=== PATIENT | male | born 1965 | race Caucasian/White ===

== ENCOUNTER 2017-05-02 23:05 | Emergency (ER) | payer OTHER, BC ==
[~2017-05-02] VITALS: Ht 180.3 cm; Wt 90.7 kg
[~2017-05-02 23:05] MED LIST: FLEXERIL PO; HYDROCHLOROTH12.5 M1 PO; HYDROCODONE-AP1 EAC6 PO; IBUPROFEN 600600 M1 PO; LISINOPRIL10 MG PO; MORPHINE SULFAT15 M3 PO; NORCO 10-325 T1 EACH PO; PERCOCET 10-321 EACH PO; PREDNISONE 20 M20 MG PO; TRAMADOL 50 MG50 MG PO; VALIUM5 MG PO; ZANAFLEX4 MG PO
[2017-05-02] MEDS ORDERED: ROBAXIN500 MG PO (23:44)
[2017-05-02] MEDS ORDERED: LOPRESSOR25 PO (23:44)
[2017-05-03] MEDS ORDERED: NAPROSYN500 MG PO (00:14)
[2017-05-03] MEDS ORDERED: PERCOCET PO (00:14)
[2017-05-03] MEDS ORDERED: NORFLEX100 MG PO (00:14)
[2017-05-03 01:04] VITALS: BP 128/96
== END 2017-05-03 01:05 | disposition home or self-care (01) ==
LOC: ER 23:05
DX: G89.4 Chronic pain syndrome (principal); M43.6 Torticollis; M50.10 Cervical disc disorder with radiculopathy, unspecified cervical region; Z87.891 Personal history of nicotine dependence

== ENCOUNTER → 2019-03-18 | Outpatient (CLI) | payer OTHER ==
[~2019-03-18] VITALS: Ht 180.3 cm; Wt 90.7 kg
[~2019-03-18] MED LIST changes: +DIPHENHIST50 MG PO; +LIDODERM1 EACH TOP; +LOPRESSOR25 PO; +NABUMETONE 500500 M1 PO; +NAPROSYN500 MG PO; +NORFLEX100 MG PO; +PERCOCET PO; +ROBAXIN500 MG PO
[2019-03-18 10:28] VITALS: BP 123/87
--- NOTE | 2019-03-18 10:56 | NUR ---
Pain Clinic Assessment: 1. History of Osteoarthritis: Not Applicable History of Rheumatoid Arthritis: Not Applicable 2. Height: 5 ft. 11 in. 180.3 cm. Weight: 200.0 lb. oz. 90.720 kg. Patient's BMI: 27.9 3. Vital Signs: BP: 123/87 Pulse: 88 Resp: 14 Temp: 02 Sat: 98 ECG Mon: 4. Pain Intensity: 6-9 5. Fall Risk: Dizziness: N Needs help standing or walking: N Fallen in the last 3 months: N Fall risk comments: 6. Patient on Blood Thinner: None 7. History of Hypertension: Y 8. Opioid Therapy greater than 6 weeks: Y Opiate Contract Signed: 9. Risk Assessment Tool Provided: 6-MODERATE RISK 10. Functional Assessment Tool: 43/ 11. Recreational Drug Use: Never Drug Type: Tobacco Use: Former Smoker Tobacco Type: Chewing Tobacco Amount or Packs/day: How Many Years: Alcohol Use: No Frequency: Quant:
--- NOTE | 2019-03-19 13:52 | HPC ---
[facility] [place] [address] PAIN MANAGEMENT CONSULTATION Name: RAJESH CALDERON Room #: REG [facility] MJudit.#: [id number] Admission: 03/18/19 Attend Phys: Anthony Walker DO Discharge: Date of : 69 Report #: [id number] THIS REPORT FOR: cc: CARON GLEZ Ray W. DO Johnson, James E. DO ~ THIS REPORT FOR: //name// CC: Dr. Eris PEREZ DATE OF SERVICE: 03/18/2019 REFERRING PHYSICIAN: Dr. Schulte, physician with [facility]. PRIMARY CARE PHYSICIAN: Dr. Monroe Perez, [facility] CHIEF COMPLAINT: Neck pain, left upper extremity pain. HISTORY OF PRESENT ILLNESS: As you know, the patient is a 53-year-old male who reports 4 months history of neck pain, left upper extremity pain. He indicates the pain as sharp and gnawing in sensation. He describes the pain as exacerbated with lying down and certain positions in his recliner. Pain is alleviated with TENS units medications. He is placing his current pain score 6-9/10. He was referred to multiple pain services including system for evaluation as the [facility] system does not have the capability of seeing the patient in a timely manner. He comes to us today with imaging study, requesting a cervical epidural injection under fluoroscopic guidance to determine if his symptoms will improve. It appears that there are some minor changes in the cervical spine and previous surgery at the C4-C5 level, but only mild arthritic changes, otherwise. He has been referred to our clinic to trial a cervical epidural injection. ALLERGIES: No reported drug allergies. CURRENT MEDICATIONS: Tizanidine 4 mg 3 times a day, tramadol 50 mg q. 8 hours p.r.n. for pain, Benadryl 50 mg p.o. at bedtime. SOCIAL HISTORY: The patient denies tobacco, alcohol, IV or illicit drug use. He is working, but is considering litigation against his employer as he reports injury began at his current place of employment. He is unaccompanied today. IMAGING: MRI of the cervical spine shows degenerative and postoperative changes [address] [address] PAIN MANAGEMENT CONSULTATION Name: RAJESH CALDERON [facility] [id number] Admission: 03/18/19 Attend Phys: Anthony Walker DO Discharge: Date of : 69 Report #: [id number] noted at the C4-C5 level. There is no central canal or neural foraminal stenosis at any level in the cervical area, mild facet arthropathy noted at C5-C6 and C6-C7. PAST MEDICAL HISTORY: Hypertension and carpal tunnel syndrome. PAST SURGICAL HISTORY: 1. Right wrist surgery. 2. Carpal tunnel release. 3. Left elbow joint replacement. 4. Fusion of the C4-C5 level. PHYSICAL EXAMINATION: VITAL SIGNS: Blood pressure 123/87, pulse 88, respiratory rate 14 and unlabored. The patient is 98% on room air. Height 5 feet, 11 inches tall, weight 200 pounds, BMI calculated 27.9. GENERAL: Well-developed, well-nourished, well-hydrated 53-year-old male, reporting pain at somewhere between 6-9/10. HEENT: Normocephalic, atraumatic. Pupils equal, round, reactive to light. Extraocular muscles are intact. Sclerae nonicteric without injection. NEUROLOGIC: Cranial nerves 2-12 grossly intact. Speech fluent. The patient deemed a good historian. LUNGS: Clear. No wheeze, rhonchi, no rales. CARDIOVASCULAR: Regular. No appreciable gallop, no rub. ABDOMEN: Soft, nontender, nondistended, normal active bowel sounds. EXTREMITIES: Show no clubbing, no cyanosis, no edema. MUSCULOSKELETAL: Upper extremity strength appears symmetrical 5/5, intact to light touch from C5 through T1 dermatomes. Spurling's test is negative. Cervical provocation testing is met with mild increase in neck pain. No specific radiation of symptoms. There is some palpatory tenderness over the paraspinal musculature, but no spinous process tenderness. Muscle bulk and tone equal and symmetrical in upper extremities. Deep tendon reflexes 2+/4 at biceps, brachialis and triceps. ASSESSMENT: 1. Cervicalgia. 2. Cervical spondylosis without radiculopathy. 3. Chronic intractable pain. PLAN: 1. The patient has been referred to our clinic to trial cervical epidural injection under fluoroscopic guidance to address minor arthritic changes in the cervical region noted at C5-C6 and to a lesser degree C4-5. The patient has no significant central canal neural foraminal stenosis responsible for any cervical radicular pain. The patient and I discussed the requested injection today and advised him of the risks and the benefits. Following was discussed with the [facility] [address] [place] [address] PAIN MANAGEMENT CONSULTATION Name: RAJESH CALDERON Room #: REG CLNeil Rey#: [id number] Admission: 03/18/19 Attend Phys: Anthony Walker DO Discharge: Date of : 69 Report #: [id number] patient today. The patient was advised risks of this injection include but are not necessarily limited to bleeding, bruising, infection, worsening pain, no relief of pain, also risk of temporary or permanent muscle weakness, temporary or permanent nerve damage, possible paralysis, post-dural puncture headache and . The patient states understood and wished to proceed. 2. The patient was provided a prescription of nabumetone 500 mg dose. This will be added to his current medication management for pain control. This anti-inflammatory is a potent medication to assist in his mild facet changes in the cervical region. He will watch for side effects of dyspepsia, worsening of blood pressure, lower extremity edema with its use. He will take each dose with food. Prescription was sent via e-scribe to local pharmacy. 3. We will see the patient back in followup visit on an as needed basis for the next in the series of cervical epidural injections if requested. The patient will be following up with his PCP in regard to medication changes and possible referral for physical therapy. 4. We wish to thank the referring physician for the opportunity to see this patient in consultation. We will keep you apprised of response to treatment as we address his mild facet arthropathy pain and chronic neck symptoms. Again, we wish to thank you for the opportunity to see this patient in consultation. <ELECTRONICALLY SIGNED> By: Anthony Walker DO 03/19/19 1352 1252 [id number] Anthony Walker DO /nt
== END | disposition home or self-care (01) ==
LOC: PAIN 06:37
DX: M54.2 Cervicalgia (principal); M47.812 Spondylosis without myelopathy or radiculopathy, cervical region; G89.29 Other chronic pain; I10 Essential (primary) hypertension; Z98.890 Other specified postprocedural states; Z96.622 Presence of left artificial elbow joint; Z79.899 Other long term (current) drug therapy

== ENCOUNTER → 2019-08-26 | Outpatient (CLI) | payer OTHER ==
[~2019-08-26] VITALS: Ht 180.3 cm; Wt 87.5 kg
[2019-08-26 09:38] VITALS: BP 120/95
--- NOTE | 2019-08-26 09:57 | NUR ---
Pain Clinic Assessment: 1. History of Osteoarthritis: Not Applicable History of Rheumatoid Arthritis: Not Applicable 2. Height: 5 ft. 11 in. 180.3 cm. Weight: 193.0 lb. oz. 87.544 kg. Patient's BMI: 26.9 3. Vital Signs: BP: 120/95 Pulse: 87 Resp: 14 Temp: 02 Sat: 98 ECG Mon: 4. Pain Intensity: 7 5. Fall Risk: Dizziness: N Needs help standing or walking: N Fallen in the last 3 months: N Fall risk comments: 6. Patient on Blood Thinner: None 7. History of Hypertension: Y 8. Opioid Therapy greater than 6 weeks: Y Opiate Contract Signed: 9. Risk Assessment Tool Provided: 6-MODERATE RISK 10. Functional Assessment Tool: 43 11. Recreational Drug Use: Never Drug Type: Tobacco Use: Former Smoker Tobacco Type: Amount or Packs/day: How Many Years: Alcohol Use: No Frequency: Quant:
--- NOTE | 2019-08-26 14:08 | HPC ---
[facility] [address] [place] [address] PAIN MANAGEMENT CONSULTATION Name: KVNGRAJESH ALEJANDRA [facility] #: [facility] [id number] Admission: 08/26/19 Attend Phys: Anthony Walker DO Discharge: Date of : 69 Report #: [id number] THIS REPORT FOR: cc: CARON GLEZ Ray W. DO Johnson, James E. DO ~ DATE OF SERVICE: 08/26/2019 CHIEF COMPLAINT: Neck pain, left upper extremity pain and paresthesias. HISTORY OF PRESENT ILLNESS: As you know, the patient is a very pleasant 53-year-old male returning in followup visit with recurrent cervical radicular symptoms. He is now experiencing pain level of 7/10. He returns today in followup visit stating pain is sharp, gnawing deep aching and throbbing in sensation, exacerbated with lying down, certain positions in his recliner, looking up at work, raising his head and moving his left arm, improves with TENS units, medications and previous cervical epidural injections. The last epidural injection provided in 03/2019 gave improvement in symptoms of greater than 70%, lasting almost until 08/13/2019. He has had a recurrence of symptoms without inciting injury or trauma. He returns today in followup visit requesting the authorization process to begin to undergo next in the series of cervical epidural injections. ALLERGIES: No known drug allergies. CURRENT MEDICATIONS: Lidocaine patch, tramadol, diphenhydramine, nabumetone. SOCIAL HISTORY: The patient denies tobacco, alcohol, IV or illicit drug use. He is working. At present, he is accompanied by his present in room today. IMAGING: No new imaging available. PHYSICAL EXAMINATION: VITAL SIGNS: Blood pressure 120/95, pulse is 87, respiratory rate 14 and unlabored. The patient is 98% on room air. Height 5 feet 11 inches tall, weight 193 pounds, BMI calculated 26.9. GENERAL: Well-developed, well-nourished, well-hydrated 53-year-old male, appearing stated age, pain is rated today at 7/10. HEENT: Normocephalic, atraumatic. Pupils equal, round and reactive. Speech is fluent. EXTREMITIES: Show no clubbing, no cyanosis, and no edema. MUSCULOSKELETAL: Upper extremity strength remains symmetrical 5/5. Intact to light touch from C5-T1 dermatomes. Spurling's test remains negative. Cervical provocation testing causes intensification of pain with lateral flexion to the left as well as rotation of the left. Deep tendon reflexes equal and [address] [address] PAIN MANAGEMENT CONSULTATION Name: RAJESH CALDERON [facility] [id number] Admission: 08/26/19 Attend Phys: Anthony Walker DO Discharge: Date of : 69 Report #: [id number] symmetrical 2+/4 at biceps, brachioradialis and triceps. ASSESSMENT: 1. Cervical radiculopathy. 2. Chronic cervicalgia. 3. Cervical spondylosis with radiculopathy. 4. Chronic intractable pain. PLAN: 1. The patient returns today in followup visit having noted a 70% improvement in overall symptoms with the epidural injection provided in March. Unfortunately, his symptoms have begun to return. He is now placing pain score 7/10. He returns today in followup visit requesting to undergo cervical epidural injection under fluoroscopic guidance. The patient was advised that due to third libertarian payer restrictions, authorization would have to be obtained before the patient could undergo the next in the series of cervical epidural injections. Authorization could take anywhere from 4-7 working days. We will begin this process immediately. Once we have the authorization available, we will have the patient return to undergo cervical epidural injection under fluoroscopic guidance to address his C7 dermatomal distribution of symptoms. 2. We made no changes in the patient's medication management at this time. He wishes to continue current medical therapy. 3. We will see the patient back in followup visit once we have achieved authorization for the patient to undergo cervical epidural injection under fluoroscopic guidance. <ELECTRONICALLY SIGNED> By: Anthony Walker DO 08/26/19 1408 1352 1403 Anthony Walker DO /nt
== END ==
LOC: PAIN 06:52
PROVIDERS: ATTEND Anesthesiology Pain Medicine
DX: M47.22 Other spondylosis with radiculopathy, cervical region (principal); M54.2 Cervicalgia; M79.622 Pain in left upper arm; R20.2 Paresthesia of skin; G89.29 Other chronic pain; Z79.899 Other long term (current) drug therapy

== ENCOUNTER → 2020-02-24 | Outpatient (CLI) | payer OTHER ==
[~2020-02-24] VITALS: Ht 180.3 cm; Wt 93.3 kg
[2020-02-24 12:52] VITALS: BP 120/88
--- NOTE | 2020-02-24 12:57 | NUR ---
Pain Clinic Assessment: 1. History of Osteoarthritis: Not Applicable History of Rheumatoid Arthritis: Not Applicable 2. Height: 5 ft. 11 in. 180.3 cm. Weight: 205.8 lb. oz. 93.350 kg. Patient's BMI: 28.7 3. Vital Signs: BP: 120/88 Pulse: 99 Resp: 18 Temp: 02 Sat: 97 ECG Mon: 4. Pain Intensity: 6 5. Fall Risk: Dizziness: N Needs help standing or walking: N Fallen in the last 3 months: N Fall risk comments: 6. Patient on Blood Thinner: None 7. History of Hypertension: Y 8. Opioid Therapy greater than 6 weeks: Y Opiate Contract Signed: 9. Risk Assessment Tool Provided: 6-MODERATE RISK 10. Functional Assessment Tool: 43/ 11. Recreational Drug Use: Never Drug Type: Tobacco Use: Former Smoker Tobacco Type: Amount or Packs/day: How Many Years: Alcohol Use: No Frequency: Quant:
--- NOTE | 2020-02-25 12:09 | HPC ---
[facility] [address] [place] [address] PAIN MANAGEMENT CONSULTATION Name: KVNGRAJESH ALEJANDRA Room #: REG [facility] Karley.#: [id number] Admission: 02/24/20 Attend Phys: Anthony Walker DO Discharge: Date of : 69 Report #: [id number] THIS REPORT FOR: cc: CARON GLZE Ray W. DO Johnson, James E. DO ~ DATE OF SERVICE: 02/24/2020 CHIEF COMPLAINT: Neck pain, left upper extremity pain with paresthesias. HISTORY OF PRESENT ILLNESS: As you know, the patient is a 54-year-old male with longstanding history of suspected cervical radiculopathy. He underwent a new MRI of the cervical spine, which shows minor changes at C3-C4, C4-C5 and C6-C7. Patent canal was noted on that scan. No reported need for surgery. The patient reports he underwent EMG that showed cervical radicular symptoms, though this EMG has not been made available to us. He returns today in followup visit to undergo cervical epidural injection under fluoroscopic guidance to address his 6/10 pain. He indicates pain is deep aching, throbbing and numbness. He describes the pain as exacerbated with lying down, positioning in a recliner, looking up and working. He states pain medications, TENS units massage and previous cervical epidural injection has improved pain. He reports with previous epidural injection 80% improvement lasting for 2 months. He returns today in followup visit for the next in the series. He denies new injury or trauma that may have led to symptom reoccurrence. There have been no changes in medical history since our last visit. ALLERGIES: NO KNOWN DRUG ALLERGIES. CURRENT MEDICATIONS: Diphenhydramine, tramadol and Lidoderm patches. SOCIAL HISTORY: The patient is a reformed smoker. Denies IV or illicit drug use. Denies any chronic alcohol use. He is unaccompanied at today's visit. IMAGING: No new imaging available. PHYSICAL EXAMINATION: VITAL SIGNS: Blood pressure 120/88, pulse 99, respiratory rate 18 and unlabored. The patient is 97% on room air. Height 5 feet 11 inches tall, weight 205.8 pounds, BMI calculated 28.7. GENERAL: Well-developed, well-nourished, well-hydrated 54-year-old male appearing stated age, pain is rated today 6/10. HEENT: Normocephalic and atraumatic. Pupils are equal, round and reactive. NEUROLOGIC: Speech fluent. The patient is wearing a mask in compliance with COVID-19 regulations. EXTREMITIES: Show no clubbing, no cyanosis, no edema. MUSCULOSKELETAL: Upper extremity strength appears symmetrical 5/5, [place] [address] PAIN MANAGEMENT CONSULTATION Name: RAJESH CALDERON Room #: REG CL Krissy#: [id number] Admission: 02/24/20 Attend Phys: Anthony Walker DO Discharge: Date of : 69 Report #: [id number] light touch from C5 through T1 dermatomes. Spurling's test negative on examination, deep tendon reflexes remain symmetrical. Muscle bulk and tone equal and symmetrical in lower extremities. ASSESSMENT: 1. Cervical radiculopathy. 2. Chronic cervicalgia. 3. Cervical spondylosis with radiculopathy. 4. Neural foraminal stenosis of the cervical spine. 5. Chronic intractable pain. PLAN: 1. The patient returns today in followup visit to undergo cervical epidural injection under fluoroscopic guidance. He reports an 80% improvement in overall pain lasting for 2 months with previous injection. He [facility] reviewed the [facility]. I am pleased to advise the patient that there is no central canal stenosis is widely patent. There is some mild neural foraminal narrowing at C3-C4, C4-C5 and to a lesser degree at C6-C7. We reviewed this with the patient today. He is prepared to undergo cervical epidural injection. He has been advised risks and benefits of the procedure, states understood and wished to proceed. 2. No medication changes made at today's visit. The patient will continue current medical therapy as prior prescribed. We did discuss with the patient that suggestions for treatment would include neuropathic pain medication such as amitriptyline, nortriptyline, Cymbalta, Lyrica, and gabapentin. He is to talk to his primary care physician about initiating this medication if he wishes to do so. 3. We will see the patient back in followup visit on an as needed basis for the next in the series of cervical epidural injections. We are hopeful the patient will continue to see benefit with these procedures. PROCEDURE NOTE DESCRIPTION OF PROCEDURE: C7-T1 cervical epidural steroid injection under fluoroscopic guidance. After obtaining written consent, the patient was taken back to fluoroscopy suite, placed in prone position with separate pillows under chest and forehead to decrease cervical lordosis. Skin overlying cervical area then prepped and draped in aseptic fashion. C7-T1 cervical interspace identified by AP fluoroscopy. Skin and subcutaneous tissue overlying target site injection anesthetized with 3 mL of 1% lidocaine. A 20-gauge 3-1/2 inch Tuohy needle advanced under fluoroscopic guidance towards the epidural space using midline approach. Epidural space identified using loss of resistance to air technique. After negative aspiration for heme or [address] [address] PAIN MANAGEMENT CONSULTATION Name: RAJESH CALDERON Room #: REG [facility] Krissy#: [id number] Admission: 02/24/20 Attend Phys: Atnhony Walker DO Discharge: Date of : 69 Report #: [id number] cerebrospinal fluid, 1 mL of Omnipaque injected. Cervical epidurogram confirmed using both AP and oblique fluoroscopy. After negative aspiration for heme or cerebrospinal fluid, 5 mL of a solution containing 2 mL 40 mg per mL, 80 mg total triamcinolone along with 3 mL of lidocaine 1% injected slowly. Needle retracted jail, flushed with 1 mL of 1% lidocaine and removed. Sterile bandage placed over injection site. No new motor deficits present in the upper extremities following procedure. The patient tolerated procedure well, carefully escorted to recovery room in stable condition. No apparent complications. After meeting discharge criteria, the patient discharged home. <ELECTRONICALLY SIGNED> By: Anthony Walker DO 02/25/20 1209 1409 1447 Anthony Walker DO /nt
== END | disposition home or self-care (01) ==
LOC: PAIN 09-02 07:41
PROVIDERS: ATTEND Anesthesiology Pain Medicine
DX: M47.22 Other spondylosis with radiculopathy, cervical region (principal); M48.02 Spinal stenosis, cervical region; G89.29 Other chronic pain; Z98.890 Other specified postprocedural states; Z79.899 Other long term (current) drug therapy; Z87.891 Personal history of nicotine dependence